=== PATIENT | male | born 1980 | race Caucasian/White ===

== ENCOUNTER 2020-05-09 15:41 | Emergency (ER) | payer OTHER, SELFPAY ==
[~2020-05-09] VITALS: Ht 172.7 cm; Wt 68.0 kg
[2020-05-09 15:43] VITALS: Ht 172.7 cm; Wt 68.0 kg
[2020-05-09 16:25] VITALS: BP 120/75
== END 2020-05-09 16:25 | disposition home or self-care (01) ==
LOC: ED 15:41
DX: R50.9 Fever, unspecified (principal); M79.10 Myalgia, unspecified site; R51.9 Headache, unspecified; R11.0 Nausea; R53.83 Other fatigue; R43.8 Other disturbances of smell and taste; Z20.822 Contact with and (suspected) exposure to COVID-19
CPT/HCPCS: U0003